=== PATIENT | male | born 1975 | race Hispanic/Latino ===

== ENCOUNTER 2022-06-07 15:41 | Emergency (ER) | payer SELFPAY ==
[2022-06-07] MEDS ORDERED: LIDOCAINE (2%) 20 MG/1 ML VIAL 20 ML MDV INFILTRATI STA (16:30)
[2022-06-07] MEDS ORDERED: LIDOCAINE 2%/EPINEPHRINE 1:100,000 VIAL (20 ML) INFILTRATI ONE (17:00)
--- NOTE | 2022-06-07 17:50 | Emergency Department Report ---
ED Laceration HPI - HPI Chief Complaint: Laceration/Recheck/Suture Stated Complaint: CUT ON ARM Time Seen by Provider: 06/07/22 16:29 Occurred When: Today Location: Upper Extremity Severity: mild Tetanus Status: Up to Date Laceration Symptoms: Yes Pain, No Foreign Body Sensation, No Numbness, No Weakness Other History: 46-year-old male was changing out a toilet upstairs when it broke resulting in laceration to his right forearm and bleeding. Presents emergency department for wound evaluation and closure. ED Review of Systems ROS: Stated complaint: CUT ON ARM Other details as noted in HPI Comment: All other systems reviewed and negative ED Past Medical Hx - Past Medical History Previous Medical History?: No - Surgical History Past Surgical History?: No - Medications Home Medications: Home Medications Medication Instructions Recorded Confirmed Last Taken Type Chlorhexidine Gluconate [Hibiclens] 10 ml TP BID #236 ml 06/07/22 Unknown Rx Laceration Physical Exam - Exam General: Vital signs noted. No distress. Alert and acting appropriately. Wound Length (cm): 12 Laceration Location: Upper Extremity Laceration Exam: Yes Normal Distal CMS, No Foreign Body, No Exposed Tendon, Vessel, or Nerve, No Tendon Injury ED Course Vital Signs 06/07/22 15:49 Temperature 98.2 F Pulse Rate 88 Respiratory 20 Rate Blood Pressure 114/80 [Right] O2 Sat by Pulse 98 Oximetry - Laceration /Wound Repair Right Arm Wound Length (cm): 12 Wound's Depth, Shape: linear Wound Explored: clean Irrigated w/ Saline (ccs): 50 Anesthesia: 1% Lidocaine Volume Anesthetic (ccs): 6 Wound Debrided: minimal Wound Repaired With: sutures Suture Size/Type: 4:0, nylon Number of Sutures: 10 Layer Closure?: Yes Deep Layer Suture Size/Type: 4:0, dexon (Vicryl) Sterile Dressing Applied?: Yes Critical care attestation.: If time is entered above; I have spent that time in minutes in the direct care of this critically ill patient, excluding procedure time. ED Disposition Clinical Impression: Forearm laceration Disposition: 01 HOME / SELF CARE / HOMELESS Is pt being admited?: No Does the pt Need Aspirin: No Condition: Stable Instructions: Laceration Care, Adult, Sutured Wound Care Prescriptions: Chlorhexidine Gluconate [Hibiclens] 10 ml TP BID #236 ml Referrals: PEGGY SINHA MD [Primary Care Provider] - 3-5 Days
[2022-06-07 18:24] VITALS: BP 123/72
== END 2022-06-07 18:07 | disposition home or self-care (01) ==
LOC: ED 15:41
DX: S51.811A Laceration without foreign body of right forearm, initial encounter (principal); X58.XXXA Exposure to other specified factors, initial encounter; Y93.89 Activity, other specified; Y92.89 Other specified places as the place of occurrence of the external cause; Y99.8 Other external cause status
CPT/HCPCS: 12034; 99282; J3490